=== PATIENT | female | born 1975 | race Caucasian/White ===

== ENCOUNTER → 2017-03-08 | Outpatient (CLI) | payer OTHER ==
[2017-03-08 11:00] LABS: BASO # 0.1 10^3/uL (0.0-0.2); BASO % 1.4 % (0.0-1.0); EOS # 0.2 10^3/uL (0.0-0.50); EOS % 2.9 % (0.0-3.0); IMMATURE GRANULOCYTE % 0.5 % (0-0); LYMPH # 1.4 10^3/uL (1.5-4.5); LYMPH % 20.7 % (24.0-44.0); MEAN CORPUSCULAR HGB CONC 27.2 g/dl (32.0-36.5); MEAN CORPUSCULAR VOLUME 70.1 fl (80.0-96.0); MONO # 0.4 10^3/uL (0.0-0.8); NEUTROPHILS # 4.6 10^3/uL (1.8-7.7); NEUTROPHILS % 68.5 % (36.0-66.0); PLATELET COUNT, AUTOMATED 365 10^3/uL (150-450); RED CELL DISTRIBUTION WIDTH 17.5 % (11.5-14.5); RETIC HEMOGLOBIN EQUIVALENT 17.5 pg (24-36); RETICULOCYTE % 2.2 % (0.5-1.5); WHITE BLOOD COUNT 6.6 10^3/uL (4.0-10.0)
[2017-03-08 11:26] LABS: POSITIVE MORPH POS FLAG
[2017-03-08 11:27] LABS: ADD MORPHOLOGY? YES
[2017-03-08 11:29] LABS: MICROCYTOSIS 2+; OVALOCYTES 1+; TEAR DROP CELLS 1+
[2017-03-08 11:32] LABS: PERCENT SATURATION 3.6 % (13.2-45.0)
[2017-03-08 12:00] LABS: FOLATE 14.4 NG/ML
[2017-03-11 02:09] LABS: HEMOGLOBIN A 98.4 % (94.0-98.0)
== END ==
LOC: M LAB 10:21
PROVIDERS: ATTEND Physician Assistant
DX: D64.9 Anemia, unspecified (principal)

== ENCOUNTER → 2017-03-14 | Outpatient (REF) | payer OTHER | LOC: M LAB REF 11:11 | PROVIDERS: ATTEND Physician Assistant | DX: D64.9 Anemia, unspecified (principal) ==

== ENCOUNTER → 2017-03-30 | Outpatient (CLI) | payer OTHER | LOC: M RAD 11:20 | DX: Z12.31 Encounter for screening mammogram for malignant neoplasm of breast (principal) | CPT/HCPCS: 77067 ==

== ENCOUNTER → 2017-05-01 | Outpatient (REF) | payer OTHER ==
[2017-05-01 13:45] LABS: RETIC HEMOGLOBIN EQUIVALENT 33.4 pg (24-36); RETICULOCYTE # 109.5 10^9/L (17-77); RETICULOCYTE % 2.4 % (0.5-1.5)
[2017-05-01 13:54] LABS: REASON FOR REVIEW ANEMIA / RBC MORPH; SLIDE REVIEW Report; SOURCE PERIPHERAL SMEAR
[2017-05-01 13:58] LABS: FERRITIN 11 NG/ML (8-252); IRON (FE) 56 UG/DL (50-170); PERCENT SATURATION 11.7 % (13.2-45.0); TOTAL IRON BINDING CAPACITY 479 UG/DL (250-450); TOTAL PROTEIN 7.5 GM/DL (6.4-8.2)
[2017-05-02 10:16] LABS: ERYTHROPOIETIN 22.7 mIU/mL (2.6-18.5)
[2017-05-02 10:16] LABS: HAPTOGLOBIN 99 mg/dL (34-200)
[2017-05-02 11:14] LABS: ALBUMIN 4.33 GM/DL (3.29-5.55); ALBUMIN % 57.7 % (55.8-66.1); ALPHA-1-GLOBULIN % 4.2 % (2.9-4.9); ALPHA-1-GLOBULINS 0.32 GM/DL (0.17-0.41); ALPHA-2-GLOBULINS 0.66 GM/DL (0.42-0.99); ALPHA-2-GLOBULINS % 8.8 % (7.1-11.8); BETA-1-GLOBULINS 0.59 GM/DL (0.28-0.60); BETA-1-GLOBULINS % 7.8 % (4.7-7.2); BETA-2-GLOBULINS 0.47 GM/DL (0.19-0.55); BETA-2-GLOBULINS % 6.3 % (3.2-6.5); GAMMA GLOBULIN % 15.2 % (11.1-18.8); GAMMA GLOBULINS 1.14 GM/DL (0.65-1.58)
== END ==
LOC: M LAB REF 13:06
DX: D64.9 Anemia, unspecified (principal)

== ENCOUNTER 2017-10-27 12:19 | Emergency (ER) | payer OTHER ==
[2017-10-27] MEDS: METAXALONE 800 MG TABLET PO (14:25)
[2017-10-27] MEDS: NAPROXEN 250 MG TAB PO (14:25)
== END 2017-10-27 15:05 | disposition home or self-care (01) ==
LOC: M ED 12:19
DX: S39.012A Strain of muscle, fascia and tendon of lower back, initial encounter (principal); V43.52XA Car driver injured in collision with other type car in traffic accident, initial encounter; Y92.410 Unspecified street and highway as the place of occurrence of the external cause
CPT/HCPCS: 72131

== ENCOUNTER → 2018-05-02 | Outpatient (CLI) | payer OTHER ==
[~2018-05-02] MED LIST: IRON27TA2 PO; PEPC1TAB5 PO; SUCR1SS PO
[2018-05-02 13:02] LABS: BASO # 0.1 10^3/uL (0.0-0.2); BASO % 0.9 % (0.0-1.0); EOS # 0.2 10^3/uL (0.0-0.50); HEMATOCRIT 40.5 % (36.0-47.0); HEMOGLOBIN 13.1 g/dl (12.0-15.5); LYMPH # 1.5 10^3/uL (1.5-4.5); MEAN CORPUSCULAR HEMOGLOBIN 29.7 pg (27.0-33.0); MEAN CORPUSCULAR HGB CONC 32.3 g/dl (32.0-36.5); MEAN CORPUSCULAR VOLUME 91.8 fl (80.0-96.0); MONO # 0.5 10^3/uL (0.0-0.8); MONO % 6.3 % (0.0-5.0); NEUTROPHILS # 5.2 10^3/uL (1.8-7.7); NEUTROPHILS % 70.3 % (36.0-66.0); PLATELET COUNT, AUTOMATED 294 10^3/uL (150-450); RED BLOOD COUNT 4.41 10^6/uL (4.00-5.40); WHITE BLOOD COUNT 7.5 10^3/uL (4.0-10.0)
[2018-05-02 13:09] LABS: ALBUMIN 3.8 GM/DL (3.2-5.2); ALT/SGPT 30 U/L (12-78); BILIRUBIN,TOTAL 0.4 MG/DL (0.2-1.0); BLOOD UREA NITROGEN 11 MG/DL (7-18); CALCIUM LEVEL 8.6 MG/DL (8.5-10.1); CARBON DIOXIDE LEVEL 28 MEQ/L (21-32); CHLORIDE LEVEL 106 MEQ/L (98-107); CHOLESTEROL LEVEL 158 MG/DL (<200); CHOLESTEROL RISK RATIO 5.096 (<5); CREATININE FOR GFR 0.62 MG/DL (0.55-1.30); GLOMERULAR FILTRATION RATE > 60.0 (>58); GLUCOSE, FASTING 102 MG/DL (70-100); HDL CHOLESTEROL 31 MG/DL (>40); LDL CHOLESTEROL 99 MG/DL (<100); NON-HDL-C 127 MG/DL; POTASSIUM SERUM 4.4 MEQ/L (3.5-5.1); SODIUM LEVEL 139 MEQ/L (136-145); TOTAL PROTEIN 6.8 GM/DL (6.4-8.2); TRIGLYCERIDES LEVEL 141 MG/DL (<150)
[2018-05-02 13:31] LABS: HEMOGLOBIN A1c 5.5 %
== END ==
LOC: M WUC 09:12
PROVIDERS: ATTEND Internal Medicine
DX: D50.9 Iron deficiency anemia, unspecified (principal)

== ENCOUNTER 2018-05-09 09:08 | Emergency (ER) | payer OTHER ==
[~2018-05-09] VITALS: Ht 152.4 cm; Wt 82.3 kg
[~2018-05-09 09:08] MED LIST changes: -PEPC1TAB5 PO; -SUCR1SS PO
[2018-05-09] MEDS ORDERED: GI COCKTAIL 50ML BTL(HYOSCYAMINE/MAALOX/LIDOCAINE VISCOUS)(1:3:1) PO ONE (10:00)
[2018-05-09 10:01] LABS: BASO # 0.1 10^3/uL (0.0-0.2); EOS # 0.1 10^3/uL (0.0-0.50); EOS % 1.6 % (0.0-3.0); HEMATOCRIT 44.1 % (36.0-47.0); HEMOGLOBIN 14.5 g/dl (12.0-15.5); LYMPH # 1.4 10^3/uL (1.5-4.5); LYMPH % 23.7 % (24.0-44.0); MEAN CORPUSCULAR HEMOGLOBIN 29.2 pg (27.0-33.0); MEAN CORPUSCULAR HGB CONC 32.9 g/dl (32.0-36.5); MEAN CORPUSCULAR VOLUME 88.7 fl (80.0-96.0); MONO # 0.4 10^3/uL (0.0-0.8); MONO % 6.1 % (0.0-5.0); NEUTROPHILS # 3.9 10^3/uL (1.8-7.7); NEUTROPHILS % 67.4 % (36.0-66.0); PLATELET COUNT, AUTOMATED 315 10^3/uL (150-450); RED BLOOD COUNT 4.97 10^6/uL (4.00-5.40); WHITE BLOOD COUNT 5.8 10^3/uL (4.0-10.0)
[2018-05-09 10:08] LABS: HCG, SERUM QUALITATIVE NEGATIVE (NEGATIVE)
[2018-05-09 10:14] LABS: ALBUMIN 4.2 GM/DL (3.2-5.2); ALT/SGPT 30 U/L (12-78); BILIRUBIN,DIRECT 0.1 MG/DL (0.0-0.2); BILIRUBIN,TOTAL 0.6 MG/DL (0.2-1.0); BLOOD UREA NITROGEN 12 MG/DL (7-18); CALCIUM LEVEL 9.1 MG/DL (8.5-10.1); CARBON DIOXIDE LEVEL 26 MEQ/L (21-32); CHLORIDE LEVEL 105 MEQ/L (98-107); CPK CREATINE PHOSPHOKINASE 123 U/L (26-192); GLOMERULAR FILTRATION RATE > 60.0 (>58); GLUCOSE, FASTING 122 MG/DL (70-100); LIPASE 154 U/L (73-393); MB/CK RELATIVE INDEX 1.06 (< OR =4); POTASSIUM SERUM 3.9 MEQ/L (3.5-5.1); SODIUM LEVEL 139 MEQ/L (136-145); TOTAL PROTEIN 7.6 GM/DL (6.4-8.2); TROPONIN I < 0.02 NG/ML (< 0.10)
[2018-05-09] MEDS ORDERED: SUCRALFATE SUSP 1GM/10ML UD PO ONE (11:00)
[2018-05-09 12:00] VITALS: BP 135/80
[2018-05-09] MEDS ORDERED: SUCR1SS PO (12:10)
[2018-05-09] MEDS ORDERED: PEPC1TAB5 PO (12:11)
--- NOTE | 2018-05-09 13:17 | REP ---
PORTABLE CHEST: Single view. There is no evidence of acute infiltrate. No pleural effusion is seen. The heart is normal in size. The mediastinal silhouette is unremarkable. The visualized osseous structures are intact. IMPRESSION: No acute pulmonary disease. Electronically Signed by Cameron Rizvi MD 05/09/2018 08:09 P
--- NOTE | 2018-05-09 17:12 | ECGEPIP ---
Stationary ECG Study [facility] - ED Test Date: 2018-05-09 Pat Name: BAMBI VELEZ Department: Room: - Gender: F Labor/Excavator: POLLY : 1975 Requested By: Karo Silva Order Number: [id number] Reading MD: Michael Winkler Measurements Intervals [place] Rate: 92 P: 39 MA: 164 QRS: -10 QRSD: 113 T: 11 QT: 349 QTc: 433 Interpretive Statements SINUS RHYTHM WITH SINUS ARRHYTHMIA BASELINE ARTIFACT AFFECTS INTERPRETATION LOW QRS VOLTAGE IN PRECORDIAL LEADS POOR R WAVE PROGRESSION INFERIOR MYOCARDIAL INFARCTION, PROBABLY OLD NO PRIORS FOR COMPARISON Electronically Signed On 05-09-2018 17:12:05 EST by Michael Winkler
== END 2018-05-09 12:32 | disposition home or self-care (01) ==
LOC: M ED 09:08
DX: R07.9 Chest pain, unspecified (principal); F41.9 Anxiety disorder, unspecified; D64.9 Anemia, unspecified; Z79.3 Long term (current) use of hormonal contraceptives; Z79.899 Other long term (current) drug therapy

== ENCOUNTER → 2018-05-10 | Outpatient (CLI) | payer OTHER ==
[~2018-05-10] MED LIST changes: +PEPC1TAB5 PO; +SUCR1SS PO
--- NOTE | 2018-05-10 09:25 | REPMRS ---
Patient History The patient states she had a clinical breast exam in March 2018.No known family history of cancer. denied. 3D TOMOSYNTHESIS WAS PERFORMED. Digital Mammo Screening Bilat: May 10, 2018 - Exam #: [id number] Bilateral CC and MLO view(s) were taken. Technologist: Carisa Campos, Technologist Prior study comparison: March 30, 2017, bilateral digital mammo screening bilat performed at [facility]. FINDINGS: There are scattered fibroglandular densities. There has been no change in the appearance of the mammogram from the prior studies. There is a mild amount of residual fibroglandular tissue which is fairly symmetric. There is no interval development of dominant mass, architectural distortion, or clustered microcalcification suggestive of malignancy. Assessment: BI-RADS/ACR category 1 mammogram. Negative Mammogram. Recommendation Routine screening mammogram in 1 year (for women over age 40). This mammogram was interpreted with the aid of an FDA-approved computer-aided dectection system. Electronically Signed By: Cameron Rizvi MD 05/10/18 0929
== END ==
LOC: M RAD 08:36
PROVIDERS: ATTEND Nurse Practitioner Adult Health
DX: Z12.31 Encounter for screening mammogram for malignant neoplasm of breast (principal)

== ENCOUNTER → 2018-08-15 | Outpatient (CLI) | payer OTHER ==
--- NOTE | 2018-08-15 13:27 | REP ---
ULTRASOUND ABDOMEN: Real-time sonographic evaluation of the abdomen performed. Gallbladder demonstrates no evidence of intraluminal sludge or calculi, wall thickening, or pericholecystic fluid. There is no intrahepatic or extrahepatic biliary dilatation, common bile duct measuring 4 mm. Liver and pancreas demonstrate homogeneous echotexture with no mass. Spleen is normal in size measuring 9.4 x 5.9 x 9.2 cm, with no intrinsic abnormality. Kidneys are normal in size and echotexture, right kidney measuring 12.6 x 5.5 x 4.7 cm and left kidney 11.6 x 5.8 x 4.9 cm. There is no renal mass, hydronephrosis or nephrolithiasis. Abdominal aorta appears normal in caliber with no evidence of aneurysm. No ascites is seen. IMPRESSION: Negative abdominal ultrasound. Electronically Signed by Cameron Rizvi MD 08/16/2018 11:14 A
--- NOTE | 2018-08-15 13:33 | REP ---
THYROID ULTRASOUND: Real-time sonographic evaluation of the thyroid performed. Right lobe is slightly larger than left, right lobe measuring 4.7 x 1.7 x 1.7 cm and left lobe 4.3 x 1.3 x 1.7 cm. Tiny cyst in the right upper pole measures 3 mm. There are two cysts in the mid and upper left lobe measuring 2 mm in diameter. No other cystic or solid nodule is seen. IMPRESSION: Thyroid does not appear to be significantly enlarged. A few tiny cysts are seen. Electronically Signed by Cameron Rizvi MD 08/16/2018 11:14 A
== END ==
LOC: M RAD 06:31
PROVIDERS: ATTEND Internal Medicine
DX: E04.9 Nontoxic goiter, unspecified (principal); R10.13 Epigastric pain

== ENCOUNTER → 2020-06-03 | Outpatient (CLI) | payer OTHER ==
--- NOTE | 2020-06-03 12:55 | REPMRS ---
Patient History The patient states she had a clinical breast exam in 2020. No known family history of cancer. 3D TOMOSYNTHESIS WAS PERFORMED. [facility] Volpara breast density b. Digital Woman Screen Mammo: June 03, 2020 - Exam #: [id number] Bilateral CC and MLO view(s) were taken. Technologist: Carisa Campos, Technologist Prior study comparison: May 10, 2018, bilateral digital mammo screening bilat, performed at [facility]. March 30, 2017, bilateral digital mammo screening bilat, performed at [facility]. FINDINGS: There are scattered fibroglandular densities. There has been no change in the appearance of the mammogram from the prior studies. There is a mild amount of residual fibroglandular tissue which is fairly symmetric. There is no interval development of dominant mass, architectural distortion, or clustered microcalcification suggestive of malignancy. Assessment: BI-RADS/ACR category 1 mammogram. Negative Mammogram. Recommendation Routine screening mammogram in 1 year (for women over age 40). This mammogram was interpreted with the aid of an FDA-approved computer-aided dectection system. Electronically Signed By: Cameron Rizvi MD 06/03/20 5301
== END ==
LOC: M WHC 11:11
PROVIDERS: ATTEND Internal Medicine
DX: Z12.31 Encounter for screening mammogram for malignant neoplasm of breast (principal)